=== PATIENT | female | born 1950 | race African-American/Black ===

== ENCOUNTER 2022-12-12 11:01 | Emergency (ER) | payer MEDICARE ==
[~2022-12-12] VITALS: Ht 180.3 cm; Wt 104.0 kg
[2022-12-12 11:16] VITALS: BP 135/80
[2022-12-12] MEDS ORDERED: ACETAMINOPHEN WITH CODEINE 300/30MG TABLET PO ONE (15:45)
[2022-12-12] MEDS ORDERED: CEFAZOLIN SODIUM 1000MG/VIAL IM ONE (15:45)
[2022-12-12] MEDS ORDERED: T3 PO (15:47)
[2022-12-12] MEDS ORDERED: CHLO473M2 MT (15:47)
[2022-12-12] MEDS ORDERED: ONDA4TAB11 PO (15:47)
[2022-12-12] MEDS ORDERED: AMOX-494 MT (15:47)
[2022-12-12] MEDS ORDERED: IBUPROFEN 600MG TABLET PO ONE (16:15)
== END 2022-12-12 16:25 | disposition home or self-care (01) ==
LOC: ER 11:01
DX: K08.89 Other specified disorders of teeth and supporting structures (principal); R68.84 Jaw pain; E11.9 Type 2 diabetes mellitus without complications
CPT/HCPCS: 96372; 99283; J0690